=== PATIENT | male | born 1955 | race Caucasian/White ===

== ENCOUNTER 2021-04-24 09:01 | Observation (INO) ==
[~2021-04-24 09:01] MED LIST: Buffered Lidocaine 1% SYRIN 1 ml INTRADERM ONE; Bupivacaine 0.5% W/EPI SDV 10 ML VIAL INJ ONE; Lactated Ringers 1000 ml BAG 1,000 ML IV SCH; Vancomycin 1,000 MG VIAL ONE; ceFAZolin 1 GM ADVAN 1 GM ADDV.VIAL IVPB ONE; ceFAZolin 2 GM in NS PREMIX 2 GM/100 ML BAG IVPB ONE
[2021-04-24] MEDS ORDERED: Bupivacaine 0.5% SDV PF 30ML VIAL ONE ×3 (09:38→12:21)
[2021-04-24] MEDS ORDERED: Midazolam 2 mg/2 ml VIAL 1 mg/ml 2 ml VIAL (2 mg) ONE (09:39)
[2021-04-24] MEDS ORDERED: Dexamethasone IV 4 MG/ML VIAL 1 ml VIAL ONE (09:39)
[2021-04-24] MEDS ORDERED: Lidocaine 1% MPF 5 ML VIAL ONE (10:11)
[2021-04-24] MEDS ORDERED: fentaNYL 100 mcg/2 ml 50 MCG/ML VIAL ONE (10:37)
[2021-04-24] MEDS ORDERED: Ketamine HCL 50 mg/ml 10 ml VIAL (500 MG) ONE (10:56)
[2021-04-24] MEDS ORDERED: Propofol 10 MG/ML 20 ML BTL ONE ×4 (11:36→12:54)
[2021-04-24] MEDS ORDERED: Phenylephrine IV 10 MG/ML 1 ml VIAL ONE (12:04)
[2021-04-24] MEDS ORDERED: Lactulose 30 ml UDC PO PRN (13:23)
[2021-04-24] MEDS ORDERED: Magnesium Hydroxide LIQ 30 ML UDC PO PRN (13:23)
[2021-04-24] MEDS ORDERED: diPHENhydraMINE IV 50 MG/ML 1 ml VIAL (BENADRYL) IV PRN ×2 (13:23→13:41)
[2021-04-24] MEDS ORDERED: Ondansetron ODT 4 mg TAB 4 MG TAB PO PRN (13:23)
[2021-04-24] MEDS ORDERED: Ondansetron 4 mg VIAL 2 MG/ML 2 ml VIAL IV PRN ×2 (13:23→13:41)
[2021-04-24] MEDS ORDERED: diPHENhydraMINE 25 mg TAB PO PRN (13:23)
[2021-04-24] MEDS ORDERED: DiMENhydriNATE IV 50 mg/ml 1 ml VIAL IV PUSH PRN (13:41)
[2021-04-24] MEDS ORDERED: fentaNYL 100 mcg/2 ml 50 MCG/ML VIAL IV PRN (13:41)
[2021-04-24] MEDS ORDERED: Naloxone 0.4 mg VIAL 0.4 mg/ml 1 ml VIAL IV PRN (13:41)
[2021-04-24] MEDS: Lactated Ringers 1000 ml BAG 1,000 ML IV SCH (16:36)
[2021-04-24] MEDS: ceFAZolin 1 GM ADVAN 1 GM in NS 0.9% 50 ML 50 ML IVPB SCH (20:05)
[2021-04-24] MEDS: Magnesium Hydroxide LIQ 30 ML UDC PO SCH (20:19)
[2021-04-25] MEDS: ceFAZolin 1 GM ADVAN 1 GM in NS 0.9% 50 ML 50 ML IVPB SCH ×2 (03:05→11:34)
[2021-04-25] MEDS: Lactated Ringers 1000 ml BAG 1,000 ML IV SCH (03:13)
[2021-04-25 05:40] LABS: Hematocrit 38 % (42-52); Hemoglobin 12.7 g/dL (14.0-18.0); Platelet Count 274 10^3/uL (150-450)
[2021-04-25 05:57] LABS: Calcium 8.1 mg/dL (8.6-10.3); Potassium 3.9 mmol/L (3.5-5.0); eGFR CKD-EPI 98.2 (>60)
[2021-04-25] MEDS: Magnesium Hydroxide LIQ 30 ML UDC PO SCH (08:56)
[2021-04-25] MEDS ORDERED: Vitamin THERAPEUTIC TAB PO SCH (09:00)
[2021-04-25] MEDS ORDERED: Flu vaccine *QUAD* 2021-22* 0.5 ML SYRINGE IM ONE (09:00)
[2021-04-25 11:33] VITALS: BP 131/74
== END 2021-04-25 14:33 | disposition home or self-care (01) ==
LOC: OR 09:01 → SSU 09:01
PROVIDERS: ADMIT Orthopaedic Surgery; ATTEND Orthopaedic Surgery